=== PATIENT | male | born 1965 | race Caucasian/White ===

== ENCOUNTER 2020-06-12 10:49 | Emergency (ER) | payer BC, OTHER ==
[2020-06-12 10:57] VITALS: TEMP 97.7; BMI 39.4
[2020-06-12] MEDS ORDERED: SODIUM CHLORIDE 1,000 ML IV STA (11:48)
--- NOTE | 2020-06-12 12:57 | PDOC ---
Attending Attestation - Resident Resident Name: PorshaMonique - ED Attending Attestation I have performed the following: I have examined & evaluated the patient, The case was reviewed & discussed with the resident, I agree w/resident's findings & plan - HPI HPI: 06/12/20 12:52 55-year-old male with history of gastric bypass surgery presents with near syncopal episode while at work. Patient reports decreased oral intake over the last week, notes decreased appetite with minimal diet, no volume losses from vomiting or diarrhea, darkening urine so he feels dehydrated. 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 Almost identical episode several years ago and was diagnosed with heat exhaustion and dehydration. At baseline, has no exercise limitations or exertional chest pain or dyspnea. No recent fevers or chills or cough. - Physicial Exam PE: 06/12/20 12:54 Blood pressure 92 systolic, heart rate otherwise normal with normal O2 sat, afebrile Well-appearing lying comfortably in stretcher, conversant, no jaundice or pallor Heart is regular without murmur, lungs are clear Abdomen benign Neurological exam is normal No trauma - Medical Decision Making 06/12/20 12:54 55-year-old male with history of gastric bypass surgery presents with episode of lightheadedness/near syncope in the setting of being outside on a roof on a very hot day. Likely heat exhaustion, but in the setting of dehydration with 1 week of decreased oral intake. Rule out metabolic abnormality/severe dehydration, check liver/renal studies. Seems less likely primary cardiac. Check labs, urinalysis EKG IV fluid rehydration Reassess Heart Score/ECG Review #1 ECG reviewed & interpreted by me at: 11:42 General ECG Interpretation: Sinus Rhythm, Normal Rate (71), Normal Intervals (qtc 423), No acute ischemic changes (early repolarization) Discharge - Discharge Information Problems reviewed: Yes Clinical Impression/Diagnosis: Near syncope Heat exhaustion Qualifiers: Encounter type: initial encounter Qualified Code(s): T67.5XXA - Heat exhaustion, unspecified, initial encounter Condition: Improved - Follow up/Referral - Patient Discharge Instructions - Post Discharge Activity
--- NOTE | 2020-06-12 13:15 | PDOC ---
History of Present Illness - General Chief Complaint: Weakness Stated Complaint: TOTAL BODY WEAKNESS/NUMBNESS Time Seen by Provider: 06/12/20 11:14 History Source: Patient Exam Limitations: No Limitations - History of Present Illness Initial Comments: Pt is a 55 yo M, with PMH of HTN, who is presenting from work for complaints of "feeling like I may pass out" and weakness all over. Pt states he was working up on a roof in the heat when he had "numbness all over and the world went black for a second". Pt was able to get himself down the ladder and his symptoms improved after rest. Pt states he had associated diaphoresis with the episode, but no chest pain or SOB. Pt also endorses recent weight loss (~10 lbs in 2 weeks), dark urine, and constant "middle belly tenderness" which does not radiate. Pt denies any recent fevers/chills, headache, vision changes, syncope, palpitations, SOB, nausea/vomiting, urinary symptoms, diarrhea/constipation, or leg swelling. Allergies: NKDA PCP: Dr. Coates ([facility]) Cards: None UTD on vaccinations, normal history. Social: Pt denies any cigarette, alcohol, or drug use. Pt denies any recent travel or sick contacts. Surgical: gastric bypass 2006 Family: Mother with lung CA, brother with thyroid CA 06/12/20 13:15 06/12/20 15:05 Past History - Travel History Traveled outside of the country in the last 30 days: No Close contact w/someone who was outside of country & ill: No - Medical History Allergies/Adverse Reactions: Allergies Allergy/AdvReac Type Severity Reaction Status Date / Time No Known Allergies Allergy Verified 06/12/20 10:52 COPD: No HTN: Yes - Surgical History Abdominal Surgery: Yes (GASTRIC BYPASS) - Immunization History Immunization Up to Date: No - Psycho-Social/Smoking History Smoking History: Never smoked - Substance Abuse Hx (Audit-C & DAST Scrn) How often the patient has a drink containing alcohol: Never Score: In Men: 4 or > Positive; In Women: 3 or > Positive: 0 Screen Result (Pos requires Nsg. Audit-10AR): Negative In the last yr the pt used illegal drug/Rx for NonMed reason: No Score: Yes response is considered Positive: 0 Screen Result (Positive result requires Nsg. DAST-10): Negative Cardiac Specific PMH - Complaint Specific PMHX Abdominal Aortic Aneurysm: No Angina: No Cardiac Arrhythmia: No Cardiac Stent: No GERD: No Myocardial Infarction: No Pacemaker: No Pulmonary Embolus: No Valvular Heart Disease: No Peripheral Vascular Disease: No Review of Systems - Review of Systems Able to Perform ROS?: Yes Is the patient limited Vietnamese proficient: No Constitutional: Yes: Loss of Appetite, Malaise, Unintentional Wgt. Loss. No: Chills, Diaphoresis, Fever, Weakness HEENTM: No: Recent change in vision, Nose Congestion, Throat Pain, Throat Swelling, Difficulty Swallowing Respiratory: No: Cough, Orthopnea, Shortness of Breath Cardiac (ROS): Yes: Lightheadedness. No: Chest Pain, Edema, Irregular Heart Rate, Palpitations, Syncope, Chest Tightness ABD/GI: Yes: See HPI, Poor Appetite, Abdominal cramping. No: Constipated, Diarrhea, Nausea, Poor Fluid Intake, Vomiting, Indigestion : Yes: See HPI. No: Burning, Dysuria, Frequency, Flank Pain, Hematuria, Pain, Urgency Musculoskeletal: No: Back Pain, Muscle Pain, Neck Pain Integumentary: Yes: See HPI, Flushing. No: Rash Neurological: No: Headache, Numbness, Weakness, Unsteady Gait, Dizziness Psychiatric: No: Sleep Pattern Change, Change in Appetite Endocrine: No: Increased Urine, Change in Weight Hematologic/Lymphatic: No: Anemia, Blood Clots, Easy Bleeding, Easy Bruising All Other Systems: Reviewed and Negative *Physical Exam - Vital Signs Last Vital Signs Temp Pulse Resp BP Pulse Ox 97.7 F 67 20 92/59 L 100 06/12/20 10:53 06/12/20 10:53 06/12/20 10:53 06/12/20 10:53 06/12/20 10:53 - Physical Exam Vitals stable, pt afebrile. Pt in NAD, obese body habitus. Pt alert and oriented x3. 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 No midline spinal tenderness, step-offs, or crepitus. Head normocephalic, atraumatic. Eyes PERRLA, EOMI. No scleral icterus. Dry oral mucosa. Oropharynx without erythema or exudates, no LAD b/l. No nasal congestion. Hearing intact. No reproducible chest wall TTP. Clear heart sounds, S1/S2, no JVD, b/l pedal edema, or heart murmur. Clear lung sounds, no respiratory distress, wheezes, crackles, or accessory muscle use. No abdominal or CVA tenderness to palpation, no rebound, no guarding. Abdomen soft, non-distended, and with normoactive bowel sounds. Skin without jaundice or rash. 06/12/20 15:26 ED Treatment Course - LABORATORY CBC & Chemistry Diagram: 06/12/20 13:12 06/12/20 13:12 - ADDITIONAL ORDERS Additional order review: Laboratory Results 06/12/20 06/12/20 13:12 13:12 PT with INR 12.00 INR 1.02 Sodium 137 Potassium 4.0 Chloride 100 Carbon Dioxide 25 Anion Gap 12 BUN 26.7 H Creatinine 1.5 H Est GFR (CKD-EPI)AfAm 60.73 Est GFR (CKD-EPI)NonAf 52.40 Random Glucose 86 Calcium 9.4 Magnesium 2.5 H Total Bilirubin 0.8 AST 43 H ALT 54 Alkaline Phosphatase 78 Creatine Kinase 285 Creatine Kinase Index 0.5 CK-MB (CK-2) 1.5 Troponin I < 0.02 Total Protein 6.5 Albumin 3.8 Lipase 357 06/12/20 13:12 RBC 4.66 MCV 93.8 MCHC 33.4 RDW 14.4 MPV 9.8 Neutrophils % 64.2 Lymphocytes % 25.6 Monocytes % 9.2 Eosinophils % 0.6 Basophils % 0.4 - RADIOLOGY Radiology Studies Ordered: Category Date Time Status CHEST PA & LAT [RAD] Stat Radiology 06/12/20 11:20 Taken - Medications Given in the ED: ED Medications Discontinued Medications Generic Name Dose Route Start Last Admin Trade Name Freq PRN Reason Stop Dose Admin Sodium Chloride 1,000 mls @ 1,000 mls/hr 06/12/20 11:48 06/12/20 13:17 Normal Saline - IV 06/12/20 12:47 1,000 mls/hr ASDIR STA Administration Medical Decision Making - Medical Decision Making Pt was seen at bedside, also will be seen by attending Dr. Nguyen. Pt pre senting with pre-syncopal episode, light-headedness. Recent weight loss, decreased appetite, dark urine. Will evaluate for biliary tree obstruction, infection, heat exhaustion, rhabdo, ACS. Event occurred ~2.5 hours before arrival. Will evaluate with troponin x1. Provided 1 L IV NS for improvement of dehydration. Will continue to reassess pt and monitor for symptomatic improvement. ECG: Early repol. No significant ST segment abnormalities TWIs or No prior EKG for comparison. CBC WNL CMP with elevated BUN/Cr (unknown baseline), possible TATI, provided IVF Lipase, tbili WNL Trop <.02 Chest x-ray without acute pathology Pt safe for d/c to home with PCP and cardiology f/u. Strict return precautions provided with pt understanding. 06/12/20 15:28 Discharge - Discharge Information Problems reviewed: Yes Clinical Impression/Diagnosis: Near syncope Heat exhaustion Qualifiers: Encounter type: initial encounter Qualified Code(s): T67.5XXA - Heat exhaustion, unspecified, initial encounter Condition: Improved Disposition: HOME - Admission No - Follow up/Referral Referrals: [facility] [place] [Provider Group] Joby Perales MD [Staff Physician] - - Patient Discharge Instructions Patient Printed Discharge Instructions: DI for Syncope in Adults (Fainting) Additional Instructions: You were seen in the ER today for near fainting. The results of your labs and imaging today were normal, although your kidney function was slightly reduced, which you should watch with your primary care doctor. Please follow-up with your primary care doctor and cardiology within 1-2 days to discuss your visit and make sure your symptoms have improved. Please return to the ER if you have any episodes of fainting, chest pain, development of fevers or chills, loss of consciousness, inability to tolerate food or fluids, or any other concerns. Please remember to stay hydrated, especially when working. - Post Discharge Activity Work/Back to School Note: Back to Work
[2020-06-12 13:28] LABS: BASO % 0.4 % (0-2.0); EOS % 0.6 % (0-4.5); HEMATOCRIT 43.7 % (35.4-49); HEMOGLOBIN 14.6 GM/dL (11.7-16.9); LYMPH % 25.6 % (8-40); MCH 31.3 pg (25.7-33.7); MCHC 33.4 g/dl (32.0-35.9); MEAN CELL VOLUME 93.8 fl (80-96); MEAN PLT VOLUME 9.8 fl (7.5-11.1); MONO % 9.2 % (3.8-10.2); NEUT % 64.2 % (42.8-82.8); PLATELET COUNT 186 K/MM3 (134-434); RBC 4.66 M/mm3 (4.00-5.60); RDW 14.4 % (11.9-15.9)
[2020-06-12 13:35] LABS: INR 1.02 (0.83-1.09)
[2020-06-12 14:29] LABS: ALBUMIN 3.8 g/dl (3.4-5.0); ALK PHOS 78 U/L (45-117); BILIRUBIN,TOTAL 0.8 mg/dL (0.2-1); CALCIUM 9.4 mg/dL (8.5-10.1); CO2 25 mmol/L (21-32); LIPASE 357 U/L (73-393); MAGNESIUM 2.5 mg/dL (1.8-2.4); SGOT/AST 43 U/L (15-37); SGPT/ALT 54 U/L (13-61); SODIUM 137 mmol/L (136-145); TOT PROT 6.5 g/dl (6.4-8.2)
[2020-06-12 14:59] LABS: ANION GAP 12 MMOL/L (8-16); BLOOD UREA NITROGEN 26.7 mg/dL (7-18); CHLORIDE 100 mmol/L (98-107); CREATININE 1.5 mg/dL (0.55-1.3); GLUCOSE,RANDOM 86 mg/dL (74-106)
[2020-06-12 15:44] VITALS: BP 105/67; PULSE 77
--- NOTE | 2020-06-13 10:29 | EKG ---
Test Reason : Blood Pressure : / mmHG Vent. Rate : 071 BPM Atrial Rate : 071 BPM P-R Int : 154 ms QRS Dur : 082 ms QT Int : 390 ms P-R-T Axes : 040 031 049 degrees QTc Int : 423 ms NORMAL SINUS RHYTHM ST ELEVATION, CONSIDER EARLY REPOLARIZATION BORDERLINE ECG NO PREVIOUS ECGS AVAILABLE Confirmed by MD Sekou, Real ([id number]) on 06/13/2020 10:29:01 AM Referred By: Confirmed By:Real Sapp MD
== END 2020-06-12 15:44 | disposition home or self-care (01) ==
LOC: JER 10:49
PROC: 3E0337Z Introduction of Electrolytic and Water Balance Substance into Peripheral Vein, Percutaneous Approach (ICD-10-PCS; principal; 2020-06-12)
DX: R55 Syncope and collapse (principal); T67.5XXA Heat exhaustion, unspecified, initial encounter
CPT/HCPCS: 36415; 71046-TC-FY; 80053; 82550; 82553; 83690; 83735; 84484; 85025; 85610; 93005; 93010; 99285-25